=== PATIENT | male | born 1950 | race Caucasian/White ===

== ENCOUNTER 2018-01-17 11:41 | Day surgery (SDC) | payer OTHER ==
[~2018-01-17 11:41] MED LIST: FLONASE16 GM NS; GABAPENTIN800 MG PO; JANUMET 50-1,01 EACH PO; JARDIANCE10 MG PO; NIFE60TA3 PO; OMEPRAZOLE20 M1 PO; SYNTHROID75 MCG PO; ZESTORETIC 20-1 EAC1 PO
[2018-01-18] MEDS ORDERED: COLACE100 MG PO (09:48)
[2018-01-18] MEDS ORDERED: PERCOCET 5-3251 EACH PO (09:48)
== END 2018-01-17 16:15 | disposition home or self-care (01) ==
LOC: AMB-ENDOS 11:41
DX: K62.1 Rectal polyp (principal); K64.2 Third degree hemorrhoids

== ENCOUNTER 2018-01-18 05:40 | Day surgery (SDC) | payer OTHER ==
[2018-01-18] MEDS ORDERED: PERCOCET 5-3251 EACH PO ×2 (09:48)
[2018-01-18] MEDS ORDERED: COLACE100 MG PO ×2 (09:48)
== END 2018-01-18 15:35 | disposition home or self-care (01) ==
LOC: CIR.AMB 05:40
DX: K64.4 Residual hemorrhoidal skin tags (principal)

== ENCOUNTER 2018-01-19 14:40 | Emergency (ER) | payer OTHER ==
[~2018-01-19] VITALS: Ht 172.7 cm; Wt 71.7 kg
[~2018-01-19 14:40] MED LIST changes: +COLACE100 MG PO; +PERCOCET 5-3251 EACH PO
== END 2018-01-19 17:43 | disposition home or self-care (01) ==
LOC: ER 14:40
DX: R33.8 Other retention of urine (principal)

== ENCOUNTER 2018-01-21 19:33 | Emergency (ER) | payer OTHER ==
[~2018-01-21] VITALS: Ht 172.7 cm; Wt 68.0 kg
== END 2018-01-21 22:26 | disposition home or self-care (01) ==
LOC: ER 19:33
DX: R33.8 Other retention of urine (principal)